=== PATIENT | female | born 1950 | race African-American/Black ===

== ENCOUNTER 2019-11-23 20:40 | Emergency (ER) | payer OTHER ==
[~2019-11-23] VITALS: Ht 162.6 cm; Wt 58.5 kg
[2019-11-23] MEDS ORDERED: AMLODIPINE-OLM1 EAC3 (20:48)
[2019-11-23] MEDS ORDERED: COZAAR100 MG (20:48)
[2019-11-24] MEDS ORDERED: DULCOLAX STOOL100 M1 PO (11:08)
[2019-11-24] MEDS ORDERED: PEPCID AC20 MG PO (11:08)
== END 2019-11-24 11:32 | disposition home or self-care (01) ==
LOC: ER 20:40
DX: R53.81 Other malaise (principal); I87.2 Venous insufficiency (chronic) (peripheral); Z03.818 Encounter for observation for suspected exposure to other biological agents ruled out; R51 Headache; M54.2 Cervicalgia

== ENCOUNTER 2019-12-05 19:01 | Emergency (ER) | payer OTHER ==
[~2019-12-05] VITALS: Ht 162.6 cm; Wt 58.5 kg
[~2019-12-05 19:01] MED LIST: AMLODIPINE-OLM1 EAC3; COZAAR100 MG; DULCOLAX STOOL100 M1 PO; PEPCID AC20 MG PO
== END 2019-12-06 13:56 | disposition home or self-care (01) ==
LOC: ER 19:01
DX: D50.0 Iron deficiency anemia secondary to blood loss (chronic) (principal); N13.39 Other hydronephrosis; R59.0 Localized enlarged lymph nodes; Z03.818 Encounter for observation for suspected exposure to other biological agents ruled out; R53.81 Other malaise
CPT/HCPCS: 36430; 36600; 71250; 74176; 82805; 86904 ×2; 86922 ×2; P9016 ×2